=== PATIENT | female | born 1990 | race Two or more races ===

== ENCOUNTER 2022-08-15 20:43 | Emergency (ER) | payer MEDICAID ==
[~2022-08-15] VITALS: Ht 154.9 cm; Wt 56.8 kg
[2022-08-15 21:04] VITALS: BP 115/95
[2022-08-15 22:12] LABS: Albumin 3.4 g/dL (3.4-5.0); BUN/Creatinine Ratio 9.4; Calcium 8.9 mg/dL (8.5-10.1); Eosinophils # (auto) 0.1 10 ^3/uL (0-0.8); Eosinophils % (auto) 2.1 % (0.0-7.0); Lymphocytes # (auto) 2.4 10 ^3/uL (0.4-5.4); Monocytes # (auto) 0.5 10 ^3/uL (0-1.3); White Blood Cell 7.1 10^3/uL (4.4-10.8)
[2022-08-15 22:15] LABS: Basophils # (auto) 0.1 10 ^3/uL (0-0.2); Basophils % (auto) 0.9 % (0.0-2.0); Bilirubin, Total 0.3 mg/dL (0.2-1.0); Hematocrit 38.5 % (36.0-46.0); Hemoglobin 12.5 g/dL (12.2-16.2); Lymphocytes % (auto) 33.2 % (10.0-50.0); Mean Corpuscular Hemoglobin 24.9 pg (28.0-32.0); Mean Corpuscular Hgb Conc. 32.4 g/dL (32.0-36.0); Mean Corpuscular Volume 76.7 fL (80.0-100.0); Monocytes % (auto) 7.3 % (0.0-12.0); Neutrophils % (auto) 56.5 % (37.0-80.0); Red Blood Cells 5.02 10^6/uL (4.0-5.20); Red Cell Distribution Width 13.6 % (11.8-14.3)
[2022-08-15 22:20] LABS: Potassium 2.8 mmol/L (3.5-5.1)
[2022-08-15] MEDS ORDERED: POTASSIUM EFFERVESENT TAB 25 MEQ PO ONE (22:45)
[2022-08-16] MEDS ORDERED: DexAMETHasone SOD PHOS 10MG/1ML VIAL INJ IM ONE (02:45)
[2022-08-16] MEDS ORDERED: ALBUTEROL SULF 2.5 MG/0.5ML(0.5%) NEB SOLN NEB ONE (02:45)
[2022-08-16] MEDS ORDERED: ALBUTEROL MEDNEB 2.5 mg/3ml NEB ONE (02:49)
[2022-08-16] MEDS ORDERED: LORazepam 2MG/ML-1ML VIAL IM ONE (03:15)
[2022-08-16] MEDS ORDERED: DEX4T PO (03:30)
[2022-08-16] MEDS ORDERED: POTA10TA51 PO (03:30)
== END 2022-08-16 03:52 | disposition home or self-care (01) ==
LOC: ER 20:43
DX: R06.02 Shortness of breath (principal); R05.9 Cough, unspecified; E87.6 Hypokalemia; J18.9 Pneumonia, unspecified organism; F17.210 Nicotine dependence, cigarettes, uncomplicated
CPT/HCPCS: 36415; 71045; 80053; 83735; 84484; 85025; 93005; 94640; 96372; 99285; J1100

== ENCOUNTER 2023-03-01 11:45 | Observation (INO) | payer MEDICAID ==
[~2023-03-01 11:45] MED LIST: ALBU108A5 IN; DEX4T PO; METO-281 PO; POTA10TA51 PO
[2023-03-01 12:51] LABS: Vaginal Trichomonas Not Present
[2023-03-01 12:52] LABS: Vaginal Bacteria Moderate; Vaginal Clue Cells Few; Vaginal Epithelial Cells Moderate
[2023-03-01] MEDS ORDERED: PREN-129 OR (14:08)
== END 2023-03-01 14:20 | disposition home or self-care (01) ==
LOC: LDRP 11:45 → UNDOADMOB 11:45 → LDRP 12:15 → UNDODISOB 14:20
PROVIDERS: ADMIT Obstetrics & Gynecology; ATTEND Obstetrics & Gynecology
DX: O26.853 Spotting complicating pregnancy, third trimester (principal); O26.893 Other specified pregnancy related conditions, third trimester; N89.8 Other specified noninflammatory disorders of vagina; Z3A.28 28 weeks gestation of pregnancy
CPT/HCPCS: 59025; 76815; 81002; 87210; 94760; G0378